=== PATIENT | female | born 1950 | race Caucasian/White ===

== ENCOUNTER 2017-06-24 16:41 | Emergency (ER) | payer MEDICARE ==
[~2017-06-24] VITALS: Ht 165.1 cm; Wt 87.1 kg
[~2017-06-24 16:41] MED LIST: ADVAIR 100-501 EACH; AMITRIPTYLINE H10 MG PO; AMOXICILLIN250 MG PO; DRAMAMINE50 MG PO; FOLIC ACID1 MG PO; GABAPENTIN300 MG PO; LORAZEPAM1 MG PO; SEROQUEL50 MG PO; ULTRAM 50MG50 MG PO; VITAMIN C1000 MG PO; ZYPREXA5 MG PO
--- OUTSIDE RECORDS SUMMARY | 2017-06-24 16:44 | XMS REPORT | Clinical Summary ---
Author Author [facility] Address Unknown Phone Unavailable Care Team Providers Care Business Records Manager Name Role Phone Patricio Coburn MD PCP Allergies Active Allergy Reactions Severity Noted Date Comments Codeine 10/04/2015 "if taken long period" Other 10/04/2015 Patient checked statement box listing: "allergy to medical tape, iodine, or latex" Current Medications Prescription Sig. Disp. Refills Start End Date Status Date LORAZepam (ATIVAN) 0.5 MG Take 0.5 mg by mouth Active tablet every 6 (six) hours as needed for anxiety. sertraline (ZOLOFT) 50 MG Take 50 mg by mouth Active tablet daily. lubiprostone (AMITIZA) 8 Take 8 mcg by mouth 2 Active MCG capsule (two) times a day with meals. traMADol (ULTRAM) 50 mg Take 50 mg by mouth every Active tablet 6 (six) hours as needed for moderate pain. QUEtiapine (SEROquel) 50 Take 50 mg by mouth Active MG tablet nightly. Active Problems Problem Noted Date Hx of diplopia 11/09/2015 Family History Medical History Relation Name Comments No Known Problems Brother No Known Problems Father No Known Problems Maternal Aunt No Known Problems Maternal Grandfather No Known Problems Maternal Grandmother No Known Problems Maternal Uncle No Known Problems Mother Cancer Other Unidentified family memb Heart attack Other Unidentified family memb Hypertension Other Unidentified family memb Strabismus Other Unidentified family memb Vision loss Other Unidentified family memb No Known Problems Paternal Aunt No Known Problems Paternal Grandfather No Known Problems Paternal Grandmother No Known Problems Paternal Uncle Relation Name Status Comments Brother Father Maternal Aunt Maternal Grandfather Maternal Grandmother Maternal Uncle Mother Other Unidentified family memb Paternal Aunt Paternal Grandfather Paternal Grandmother Paternal Uncle Social History Tobacco Use Types Packs/Day Years Used Date Former Smoker Cigarettes 0.5 50 Alcohol Use Drinks/Week oz/Week Comments Yes 2 unidentified drinks/year Sex Assigned at Date Recorded Not on file Last Filed Vital Signs Not on file Plan of Treatment Health Maintenance Due Date Last Done Comments COLONOSCOPY 12/28/1999 ZOSTER VACCINE 2009 PNEUMOCOCCAL 2014 POLYSACCHARIDE VACCINE AGE 65 AND OVER PNEUMOCOCCAL-13 2014 MAMMOGRAM 03/06/2015 03/06/2013, 03/06/2013, 02/11/2013 INFLUENZA VACCINE 11/14/2016 Results Not on fileafter 06/23/2016 Insurance Payer Benefit Subscriber ID Type Phone Address Plan / Group AETNA MEDICARE AETNA xxxxxxxx O MEDICARE HMO/PPO [facility] [place] [place] [address] [place] [address]
--- NOTE | 2017-06-24 17:54 | Diagnostic Imaging Report ---
SHOULDER LEFT COMPLETE, HUMERUS LEFT 2+VIEWS - 3 views HISTORY: Fall. COMPARISON: None available. FINDINGS: Bones: Severely comminuted displaced impaction fracture of the left humeral head and neck with superior displacement of the distal fracture fragment. Joints: The joint spaces are well-maintained. Soft tissues: The soft tissues appear unremarkable. IMPRESSION: Severely comminuted displaced impaction fracture of the left humeral head and neck. Signed by: Dr. Seven Velazquez M.D. on 06/24/2017 5:50 PM
[2017-06-24] MEDS ORDERED: HYDROCODONE/APAP 5MG-325MG TAB PO ONE (18:30)
== END 2017-06-24 18:49 | disposition home or self-care (01) ==
LOC: ER 16:41
DX: S42.295A Other nondisplaced fracture of upper end of left humerus, initial encounter for closed fracture (principal); W01.0XXA Fall on same level from slipping, tripping and stumbling without subsequent striking against object, initial encounter; Y93.01 Activity, walking, marching and hiking; Y92.008 Other place in unspecified non-institutional (private) residence as the place of occurrence of the external cause; I10 Essential (primary) hypertension; F31.9 Bipolar disorder, unspecified
CPT/HCPCS: 99283

== ENCOUNTER → 2018-05-10 | Day surgery (SDC) | payer MEDICARE ==
[2018-05-08 13:14] LABS: BASOPHILS % 0.1 % (0.0-1.0); HEMATOCRIT 49.1 % (34.2-44.1); HEMOGLOBIN 16.7 g/dL (12.0-16.0); LYMPHOCYTES # (AUTO) 2.1 (1.0-3.2); LYMPHOCYTES % 14.5 % (18.0-39.1); MEAN CORPUSCULAR HEMOGLOBIN 28.8 pg (28-32); MEAN CORPUSCULAR VOLUME 84.8 fL (81-99); MONOCYTES # (AUTO) 1.3 (0.2-0.8); MONOCYTES % 8.6 % (4.4-11.3); NEUTROPHILS # (AUTO) 11.1 (2.1-6.9); NEUTROPHILS % 76.3 % (38.7-80.0); PLATELET COUNT 346 x10e3/uL (140-360); RED BLOOD COUNT 5.79 x10e6/uL (3.6-5.1); RED CELL DISTRIBUTION WIDTH 13.3 % (11.7-14.4)
--- NOTE | 2018-05-08 13:18 | Diagnostic Imaging Report ---
EXAM: XR CHEST 2 VIEWS DATE: 05/08/2018 12:26 PM INDICATION: Preoperative, smoker, cough COMPARISON: 02/18/2018, no report available FINDINGS: Lines and Tubes: None Heart and Mediastinum: No acute cardiomediastinal findings. Mild aortic vascular calcifications. Lungs and Pleura: Granuloma right midlung and probable chronic interstitial changes in the lung bases, similar. Bones and Soft Tissues: Orthopedic hardware cervical spine and arthroplasty changes left shoulder. IMPRESSION: 1. Stable chronic changes. Signed by: Dr. Maurisio Wong MD on 05/08/2018 1:14 PM
[2018-05-08 13:29] LABS: ANION GAP 13.3 mmol/L (8-16); CALCIUM 10.7 mg/dL (8.4-10.2); CREATININE, SERUM 0.94 mg/dL (0.57-1.11); POTASSIUM 4.3 mmol/L (3.5-5.1)
[~2018-05-10] MED LIST changes: +AMITIZA24 MCG PO; +BUPIVACAINE 0.25%/EPI 30ML SDV INJ ONE; +CLONAZEPAM0.5 MG PO; +CYCLOBENZAPRINE5 MG PO; +DEXAMETHASONE SOD PHOS INJ 4 MG/ML VIAL ONE; +EPHEDRINE SULFATE INJ 50 MG/10 ML SYR ONE; +FENTANYL CITRATE/PF 100MCG/2 ML INJ ONE; +HYDROMORPHONE 2MG/ML 2 MG/ML ML ONE; +KLONOPIN1 MG PO; +LIDOCAINE HCL 2% LOCAL INJ 5 ML SDV VIAL INJ ONE; +MAGNESIUM PO; +METHOCARBAMOL500 MG PO; +METOCLOPRAMIDE HCL 10 MG/2ML VIAL ONE; +MIDAZOLAM HCL 2 MG/2 ML VIAL ONE; +ONDANSETRON HCL INJ 2MG/ML 2ML 2 MG/ML VIAL ONE; +PROPOFOL IV EMULSION 10 MG/ML 20 ML VIAL ONE; +SEVOFLURANE INHAL SOLN 250 ML PEN BTL ONE; +TRAMADOL HCL 50 MG TAB ONE; +VESICARE5 MG PO
--- OUTSIDE RECORDS SUMMARY | 2018-05-10 08:26 | XMS REPORT ---
Author Author [facility] Address Unknown Phone Unavailable Care Team Providers Care Government Operations Consultant Name Role Phone Sravanthi ZHENG Unavailable Unavailable MALU CARD Unavailable Unavailable Franchesca SKELTON Unavailable Unavailable Problems This patient has no known problems. Allergies, Adverse Reactions, Alerts This patient has no known allergies or adverse reactions. Medications This patient has no known medications. Results Test Description Test Time Test Comments Text Results Atomic Results Result Comments CHEST 2 VIEWS 2018-05-08 13:13:00 [place] [address] Patient Name: LITZY BARKERSIERRA Funez MR #: [id number] : 1950 Age/Sex: 67/F Req #: [id number] Adm Physician: Ordered by: GONZALO ZHENG MD Report #: [id number] Location: OR Room/Bed: Procedure: [id number] DX/CHEST 2 VIEWS Exam Date: Exam Time: REPORT STATUS: Signed EXAM: XR CHEST 2 VIEWS DATE: 05/08/2018 12:26 PM INDICATION: Pr eoperative, smoker, cough COMPARISON: 02/18/2018, no report available FINDINGS: Lines and Tubes: None Heart and Mediastinum: No acute cardiomediastinal findings. Mild aortic vascular calcifications. Lungs and Pleura: Granuloma right midlung and probable chronic interstitial changes in the lung bases, similar. Bones and Soft Tissues: Orthopedic hardware cervical spine and arthroplasty changes left shoulder. IMPRESSION: 1. Stable chronic changes. Signed by: Dr. Marce Wong MD on 05/08/2018 1:14 PM Dictated By: MARCE WONG MD 13 Transcribed By: JUD on 05/08/181313 COPY TO: GONZALO ZHENG MD CHEST 2 VIEWS 2018-02-18 15:06:00 [place] [address] Patient Name: OLGA LIDIA BARKER MR #: [id number] : 1950 Age/Sex: 67/F Req #: [id number] Adm Physician: Ordered by: GONZALO ZHENG MD Report #: [id number] Location: OR Room/Bed: Procedure: [id number] DX/CHEST 2 VIEWS Exam Date: Exam Time: REPORT STATUS: Signed EXAMINATION: PA and lateral views of the chest. COMPARISON: None CLINICAL HISTORY: Preoperative evaluation for breast surgery DISCUSSION: Lines/tubes: None. Lungs: The lungs are well inflated and clear. No pneumonia or pulmonary edema. Calcified granuloma right midlung. Pleura: There is no pleural effusion or pneumothorax. Heart and mediastinum: The cardiomediastinal silhouette is normal. Bones and soft tissues: No acute bony abnormalities. IMPRESSION: No acute cardiopulmonary abnormalities. Signed by: Dr. Jessi Magaña M.D. on 02/18/2018 3:06 PM Dictated By: JESSI MAGAÑA MD 1506 Transcribed By: JUD on 02/18/18 150 COPY TO: GONZALO ZHENG MD BASIC METABOLIC PANEL 2017-07-06 07:17:00 SODIUM (BEAKER) (test zxiz=336) 132 meq/L 136-145 POTASSIUM (BEAKER) (test kjvd=477) 4.3 meq/L 3.5-5.1 CHLORIDE (BEAKER) (test uvvc=120) 102 meq/L 98-107 CO2 (BEAKER) (test zxkw=678) 20 meq/L 22-29 BLOOD UREA NITROGEN (BEAKER) (test okyr=277) 11 mg/dL 7-21 CREATININE (BEAKER) (test zjlt=319) 0.75 mg/dL 0.57-1.25 GLUCOSE RANDOM (BEAKER) (test mgml=690) 110 mg/dL 70-105 CALCIUM (BEAKER) (test qiod=496) 8.7 mg/dL 8.4-10.2 EGFR (BEAKER) (test uwxb=0490) 77 mL/min/1.73 sq m ESTIMATED GFR IS NOT ACCURATE CREATININE CLEARANCE IN PREDICTING GLOMERULAR FILTRATION RATE. ESTIMATED GFR IS NOT APPLICABLE FOR DIALYSIS PATIENTS. HEMOGLOBIN AND [id number] 06:31:00* Test Item Value Reference Range Comments HEMOGLOBIN (BEAKER) (test ztmo=000) 11.6 GM/DL 11.2-15.7 HEMATOCRIT (BEAKER) (test nxam=945) 34.8 % 34.1-44.9 BASIC METABOLIC [id number] 17:02:00* Test Item Value Reference Range Comments SODIUM (BEAKER) (test dzuz=417) 131 meq/L 136-145 POTASSIUM (BEAKER) (test mcxy=838) 4.1 meq/L 3.5-5.1 CHLORIDE (BEAKER) (test jbav=807) 99 meq/L 98-107 CO2 (BEAKER) (test xzdc=892) 24 meq/L 22-29 BLOOD UREA NITROGEN (BEAKER) (test laft=430) 14 mg/dL 7-21 CREATININE (BEAKER) (test nitm=222) 0.74 mg/dL 0.57-1.25 GLUCOSE RANDOM (BEAKER) (test zzww=774) 131 mg/dL 70-105 CALCIUM (BEAKER) (test rtoq=735) 9.5 mg/dL 8.4-10.2 EGFR (BEAKER) (test muqw=0255) 78 mL/min/1.73 sq m ESTIMATED GFR IS NOT ACCURATE CREATININE CLEARANCE IN PREDICTING GLOMERULAR FILTRATION RATE. ESTIMATED GFR IS NOT APPLICABLE FOR DIALYSIS PATIENTS. HEMOGLOBIN AND [id number] 16:50:00* Test Item Value Reference Range Comments HEMOGLOBIN (BEAKER) (test tlet=828) 13.3 GM/DL 11.2-15.7 HEMATOCRIT (BEAKER) (test ltxo=779) 41.5 % 34.1-44.9 FL, INSURANCE SALES EXECUTIVE IN OR/30 MINUTE [id number] 15:40:00Reason for exam:->Open Reverse Shoulder ArthroplastyFINAL REPORT Fluoroscopy three views intraoperative 07/05/2017 3:40 PM CLINICAL HISTORY: Instrument localization COMPARISON: None available IMPRESSION: Please correlate imaging report findings with the procedure note prepared by Dr. Card, as an intra- procedure imaging consultation was not requested. Reported fluoroscopy time: 2.7 seconds. Signed: Taz Ibarra Verified Date/Time: 07/05/2017 15:40:55 Reading Location: [address] Consult Reading Room [id number] 14:58:00* Test Item Value Reference Range Comments SODIUM (BEAKER) (test fgal=602) 132 meq/L 136-145 POTASSIUM (BEAKER) (test tusy=962) 4.0 meq/L 3.5-5.1 CHLORIDE (BEAKER) (test ishv=795) 97 meq/L 98-107 CO2 (BEAKER) (test leos=991) 27 meq/L 22-29 BUN AND [id number] 14:58:00* Test Item Value Reference Range Comments BLOOD UREA NITROGEN (BEAKER) (test kkfg=072) 15 mg/dL 7-21 CREATININE (BEAKER) (test oojh=234) 0.78 mg/dL 0.57-1.25 EGFR (BEAKER) (test jugq=9647) 74 mL/min/1.73 sq m ESTIMATED GFR IS NOT ACCURATE CREATININE CLEARANCE IN PREDICTING GLOMERULAR FILTRATION RATE. ESTIMATED GFR IS NOT APPLICABLE FOR DIALYSIS PATIENTS. [id number] 14:55:00* Test Item Value Reference Range Comments HEMOGLOBIN (BEAKER) (test vzvg=031) 14.6 GM/DL 11.2-15.7 PLATELET [id number] 14:55:00* Test Item Value Reference Range Comments PLATELET COUNT (ZAIRA) (test shna=694) 284 K/CU MM 150-450 SHOULDER LEFT COMPLETE [place] [id number] [place] [address] Patient Name: OLGA LIDIA BARKER MR #: [id number] : 1950 Age/Sex: 66/F Req #: [id number] Adm Physician: Ordered by: POLO BUSTILLO NP Report #: [id number] Location: ER Room/Bed: Procedure: [id number] DX/SHOULDER LEFT COMPLETE Exam Date: 06/24/17 Exam Time: 1745 REPORT STATUS: Signed SHOULDER LEFT COMPLETE, HUMERUS LEFT 2+VIEWS - 3 views HISTORY: Fall. COMPARISON: None available. FINDINGS: Bones: Severely comm inuted displaced impaction fracture of the left humeral head and neck with sup erior displacement of the distal fracture fragment. Joints: The joint spa kellee are well-maintained. Soft tissues: The soft tissues appear unremarkab le. IMPRESSION: Severely comminuted displaced impaction fracture o f the left humeral head and neck. Signed by: Stanley Noguera on 06/24/2017 5:50 PM Dictated By: MARITA ROUSSEAU MD, MD 49 Transcribed By: JUD on 1749 COPY TO: POLO BUSTILLO NP HUMERUS LEFT 2+VIEWS [place] [address] Patient Name: OLGA LIDIA BARKER MR #: [id number] : [birth year] Age/Sex: 66/F Req #: [id number] [facility] Physician: Ordered by: POLO BUSTILLO NP Report #: [id number] Location: Room/Bed: Procedure: [id number] DX/HUMERUS LEFT 2+VIEWS Exam D ate: 06/24/17 Exam Time: 1745 REPORT STATUS: Si gned SHOULDER LEFT COMPLETE, HUMERUS LEFT 2+VIEWS - 3 views HISTORY: Fa ll. COMPARISON: None available. FINDINGS: Bones: Severely commin uted displaced impaction fracture of the left humeral head and neck with super ior displacement of the distal fracture fragment. Joints: The joint space s are well-maintained. Soft tissues: The soft tissues appear unremarkable . IMPRESSION: Severely comminuted displaced impaction fracture of the left humeral head and neck. Signed by: Dr. Seven Rousseau M.D. on 06/24/2017 5:50 PM Dictated By: MARITA ROUSSEAU MD, MD Electronically S igned By: MARITA ROUSSEAU MD, MD on 06/24/171749 Transcribed By: JUD on 06/14 COPY TO: POLO BUSTILLO NP
--- OUTSIDE RECORDS SUMMARY | 2018-05-10 08:26 | XMS REPORT | Clinical Summary ---
Author Author [facility] Address Unknown Phone Unavailable Care Team Providers Care Cable Swager Name Role Phone Almas Patricio PCP Allergies Comments Active Allergy Reactions Severity Noted Date Sometimes causes hyperactivity Tolerates Tylenol # 3 Codeine Other (See 04/05/2015 Comments) Triggers bipolar sx Hydrocodone-Acetaminophen 07/04/2017 Medications End Date Status Medication Sig Dispensed Refills Start Date Active dimenhyDRINATE Take by 0 (DRAMAMINE) 25 mg Chew mouth. Active LORazepam (ATIVAN) 0.5 MG Take 0.5 mg 0 tablet by mouth 3 (three) times daily . Active sertraline (ZOLOFT) 50 MG Take 75 mg by 0 tablet mouth daily . Active LUBIPROSTONE (AMITIZA Take by 0 ORAL) mouth. Active oxyCODONE-acetaminophen Take 1 tablet 0 (PERCOCET) 7.5-325 mg per by mouth tablet every 4 (four) hours as needed for Pain. Active QUEtiapine (SEROQUEL) 100 Take 100 mg 0 MG tablet by mouth nightly. Active cyclobenzaprine Take 10 mg by 0 (FLEXERIL) 10 MG tablet mouth 3 (three) times daily as needed for Muscle spasms. Active acetaminophen-codeine Take 1 tablet 0 (TYLENOL #3) 300-30 mg by mouth per tablet every 4 (four) hours as needed for Pain Pt states no reaction to this . 07/21/2017 acetaminophen-codeine Take 1 tablet 60 tablet 0 (TYLENOL #3) 300-30 mg by mouth 8 per tablet every 4 (four) hours as needed for Pain for up to 15 days. Max Daily Amount: 6 tablets 07/20/2017 aspirin (LOWELL ASPIRIN) Take 1 tablet 14 tablet 0 325 MG tablet (325 mg 8 total) by mouth daily for 14 days. 08/05/2017 lubiprostone (AMITIZA) 8 Take 1 60 capsule 0 MCG capsule capsule (8 8 mcg total) by mouth 2 (two) times daily with breakfast and dinner for 30 days. 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 Trigger thumb 04/21/2015 Carpal tunnel syndrome of left wrist 04/13/2015 Trigger thumb of left hand 04/13/2015 Retained orthopedic hardware 04/13/2015 Closed fracture of distal end of left radius with malunion 04/13/2015 Overview: UPDATED BY ICD10 SNOMED/IMO UPDATES Encounters Care Team Description Date Type Specialty Becca Das RN Follow-up 07/09/2017 Telephone Anesthesiology Natan Bauer MD 07/05/2017 Anesthesia Event Harrison Card MD ARTHROPLASTY,SHOULDER 07/05/2017 Surgery Harrison Card MD Other closed displaced fracture of proximal end of left humerus, initial encounter (Primary Dx) 07/05/2017 [facility] General Internal Medicine - Encounter 07/06/2017 Harrison Card MD Arthritis of wrist, left 07/04/2017 Hospital Pre-Admission Testing Encounter 07/04/2017 Orders Only General Internal Medicine after 05/09/2017 Social History Date Tobacco Use Types Packs/Day Years Used Current Every Day Smoker 1 50 Smokeless Tobacco: Never Used Tobacco Cessation: Ready to Quit: Yes; Counseling Given: Yes Comments: previously educated Alcohol Use Drinks/Week oz/Week Comments No rare Sex Assigned at Date Recorded Not on file Industry Job Start Date Occupation Not on file Not on file Not on file Travel End Travel History Travel Start No recent travel history available. Last Filed Vital Signs Time Taken Vital Sign Reading 07/06/2017 11:06 AM CDT Blood Pressure 120/59 07/06/2017 11:06 AM CDT Pulse 82 07/06/2017 11:06 AM CDT Temperature 36.2 C (97.1 F) 07/06/2017 11:06 AM CDT Respiratory Rate 18 07/06/2017 11:06 AM CDT Oxygen Saturation 97% - Inhaled Oxygen - Concentration 07/05/2017 8:58 AM CDT Weight 113.1 kg (249 lb 6.4 oz) 07/05/2017 8:58 AM CDT Height 162.6 cm (5' 4") 07/05/2017 8:58 AM CDT Body Mass Index 42.81 Plan of Treatment Not on file Implants Device Identifier Shelf Expiration Date Model / Serial / Lot Implanted Type Area Manufactur er 01/13/2021 [id number] / / [id number] Orthocord Sut Multipk #[id number] - [place]/Art Left: Shoulder J [id number] hroscopy &J:ETHICON Implanted: Qty: 1 on 07/05/2017 by :Harrison Macias MD PRDT 11/13/2021 AR-[id number] / / [id number] Sut Tape 1.3mm Ndl Tapr Wht Bl [place]/Art Left: Shoulder ARTHREX Ar-7500 - [id number] hroscopy Implanted: Qty: 2 on 07/05/2017 by Harrison Card MD 10/13/2021 AR-7200 / / [id number] Sut Fbrwire 2 38in 0[address]5 Cir Ar-7200 [place]/Art Left: Shoulder ARTHREX - [id number] hroscopy Implanted: Qty: 1 on 07/05/2017 by Harrison Card MD 205.226 / / Taylor More Full Thread 3.5x26mm - Fracture/F Left: Wrist SYNTHES [id number] ixation TRUMA Implanted: Qty: 1 on 04/21/2015 by Justin Alex III 205.224 / / Scr Taylor Ft 3.5x24 Ns 205.224 - IMPLANTS Left: Wrist SYNTHES [id number] TRUMA Implanted: Qty: 1 on 04/21/2015 by Justin Alex III Explanted: 12/11/2022 530-08-108 / / [id number] Stem Hum Rev 3q592st [id number] - Joints Left: Shoulder DJ [id number] SURG:ENCOR Implanted: Qty: 1 on 07/05/2017 by Harrison Cuadra MD MED:ENCORE ORTH 04/24/2022 [id number] / / [id number] Insrt Hum Socket 32mm 509-00-032 - Joints Left: Shoulder DJ [id number] SURG:ENCOR Implanted: Qty: 1 on 07/05/2017 by Harrison Cuadra MD MED:ENCORE ORTH 05/15/2023 [id number] / / [id number] Baseplt Glenoid Rsp 508-32-104 - Joints Left: Shoulder DJ [id number] SURG:ENCOR Implanted: Qty: 1 on 07/05/2017 by Harrison Cuadra MD MED:ENCORE ORTH 05/18/2023 [id number] / / [id number] Scr Bone 5.0x14mm 506-03-114 - Joints Left: Shoulder DJ [id number] SURG:ENCOR Implanted: Qty: 3 on 07/05/2017 by Harrison Cuadra MD MED:ENCORE ORTH 04/02/2023 [id number] / / [id number] Scr Bone 5.0x26mm 506-03-126 - Joints Left: Shoulder DJ [id number] SURG:ENCOR Implanted: Qty: 1 on 07/05/2017 by Harrison Cuadra MD MED:ENCORE ORTH 05/08/2023 [id number] / / [id number] Head Glenoid Sz 32 4 508-32-103 - Joints Left: Shoulder DJ [id number] SURG:ENCOR Implanted: Qty: 1 on 07/05/2017 by Harrison Cuadra MD MED:ENCORE ORTH 09/13/2018 415-00-080 / / [id number] [place] Cement Plug Left: Shoulder Implanted: Qty: 1 on 07/05/2017 by Harrison Card MD 10/13/2018 600-15-100 / / [id number] Means Hv With Gentamicin Left: Shoulder DJ ORTHO Implanted: Qty: 2 on 07/05/2017 by Harrison Card MD Procedures Comments Procedure Name Priority Date/Time Associated Diagnosis HEMOGLOBIN AND HEMATOCRIT Routine 07/06/2017 5:35 AM CDT BASIC METABOLIC PANEL (7) Routine 07/06/2017 5:35 AM CDT TRANSFUSION SERVICE 07/05/2017 REPORT - SCAN 5:44 PM CDT HEMOGLOBIN AND HEMATOCRIT STAT 07/05/2017 4:14 PM CDT BASIC METABOLIC PANEL (7) STAT 07/05/2017 4:14 PM CDT FL TALKBACK HOST IN OR 30 Routine 07/05/2017 MINUTE INCREMENTS 3:20 PM CDT ANESTHESIA PERIPHERAL Routine 07/05/2017 BLOCK 11:08 AM CDT PROCEDURE W/ C-ARM 07/05/2017 Closed 3-part fracture of 10:30 AM CDT proximal humerus with routine healing, left Special Needs (GENERAL WITH POST OP BLOCK CONTINUOUS , C-ARM/TECH , DONJOY, ARTHREX SUTURE TAPE, REGULAR OR TABLE WITH PADDED [place]) ARTHROPLASTY,SHOULDER 07/05/2017 Closed 3-part fracture of 10:30 AM CDT proximal humerus with routine healing, left Special Needs (GENERAL WITH POST OP BLOCK CONTINUOUS , C-ARM/TECH , DONJOY, ARTHREX SUTURE TAPE, REGULAR OR TABLE WITH PADDED [place]) PLATELET COUNT Routine 07/04/2017 2:25 PM CDT HEMOGLOBIN Routine 07/04/2017 2:25 PM CDT BUN AND CREATININE Routine 07/04/2017 2:25 PM CDT ELECTROLYTE PANEL Routine 07/04/2017 2:25 PM CDT TYPE AND SCREEN, Routine 07/04/2017 AUTOMATED 2:23 PM CDT ECG 12-LEAD Routine 07/04/2017 2:13 PM CDT Procedure Note - Interface, External Ris In - 07/04/2017 2:27 PM CDT Ventricula r Rate 85 BPM Atrial Rate 85 BPM P-R Interval 164 ms QRS Duration 106 ms Q-T Interval 368 ms QTC Calculatio n(Bazett) 437 ms P Shannock 54 degrees R Shannock -55 degrees T Shannock 32 degrees Normal sinus rhythm Low voltage QRS Incomplete right bundle branch block Left anterior fascicular block Abnormal ECG When compared with ECG of 5 13:50, Criteria for Inferior infarct are no longer Present ECG 12-LEAD Routine 07/04/2017 2:13 PM CDT after 05/09/2017 Results * Hemoglobin and hematocrit (07/06/2017 5:35 AM CDT) Only the most recent of 2 results within the time period is included. Hemoglobin 11.6 11.2 - 15.7 GM/DL [facility] Hematocrit 34.8 34.1 - 44.9 % [facility] Specimen Blood - Arm, Right Performing Organization Address [facility] Phone Number [facility] [address] [place] [address] [facility] * Basic metabolic panel (07/06/2017 5:35 AM CDT) Only the most recent of 2 results within the time period is included. Sodium 132 (L) 136 - 145 meq/L [facility] Potassium 4.3 3.5 - 5.1 meq/L [facility] Chloride 102 98 - 107 meq/L [facility] CO2 20 (L) 22 - 29 meq/L [facility] BUN 11 7 - 21 mg/dL [facility] Creatinine 0.75 0.57 - 1.25 mg/dL [facility] Glucose 110 (H) 70 - 105 mg/dL [facility] Calcium 8.7 8.4 - 10.2 mg/dL [facility] EGFR 77Comment: ESTIMATED GFR IS mL/min/1.[address] [facility] NOT ACCURATE CREATININE [facility] CLEARANCE IN PREDICTING GLOMERULAR FILTRATION RATE. ESTIMATED GFR IS NOT APPLICABLE FOR DIALYSIS PATIENTS. Specimen Blood - Arm, Right Performing Organization Address City/[facility] Phone Number [facility] [address] [place] [address] [facility] * TRANSFUSION SERVICE REPORT - SCAN (07/05/2017 5:44 PM CDT) Narrative Performed At * [place] graduate research assistant in or 30 minute increments (07/05/2017 3:20 PM CDT) Narrative Performed At FINAL REPORT GE RIS Fluoroscopy three views intraoperative 07/05/2017 3:40 PM CLINICAL HISTORY: Instrument localization COMPARISON: None available IMPRESSION: Please correlate imaging report findings with the procedure note prepared by Dr. Card, as an intra-procedure imaging consultation was not requested. Reported fluoroscopy time: 2.7 seconds. Signed: Taz Ibarra MD Report Verified Date/Time:07/05/2017 15:40:55 Reading Location: [address] Consult Reading Room Procedure Note Interface, External Ris In - 11/23/2017 11:14 AM CDT FINAL REPORT Fluoroscopy three views intraoperative 07/05/2017 3:40 PM CLINICAL HISTORY: Instrument localization COMPARISON: None available IMPRESSION: Please correlate imaging report findings with the procedure note prepared by Dr. Card, as an intra-procedure imaging consultation was not requested. Reported fluoroscopy time: 2.7 seconds. Signed: Taz Ibarra MD Report Verified Date/Time: 07/05/2017 15:40:55 Reading Location: [address] Consult Reading Room Performing Organization Address City/State/Zipcode Phone Number [facility] * ANESTHESIA PERIPHERAL BLOCK (07/05/2017 11:08 AM CDT) Narrative Performed At Jessi Qureshi MD 07/05/2017 11:08 AM Peripheral Block Patient location during procedure: pre-op Start time: 07/05/2017 10:11 AM End time: 07/05/2017 10:28 AM Reason for block: procedure for pain, at surgeon's request and post-op pain management Staffing Anesthesiologist: JESSI QURESHI Performed by: anesthesiologist Preanesthetic Checklist Completed: patient identified, site marked, surgical consent, pre-op evaluation, timeout performed, IV checked, risks and benefits discussed and monitors and equipment checked Peripheral Block Patient position: supine Prep: ChloraPrep Patient monitoring: heart rate, rn cardiac cath and continuous pulse ox Block type: Interscalene Laterality: left Injection technique: catheter Procedures: ultrasound guided and landmark technique Local infiltration: ropivicaine Infiltration strength: 0.35 % Dose: 20 mL Needle Needle type: short-bevel Needle gauge: 18 G Needle length: 75mm. Catheter type: open end Catheter size: 19 G Test dose: negative Assessment Injection assessment: negative aspiration for heme, no paresthesia on injection, incremental injection and local visualized surrounding nerve on ultrasound Paresthesia pain: none Heart rate change: no Slow fractionated injection: yes Additional Notes Patient tolerated well.No pain on injection or throughout procedure. Procedure Note Jessi Qureshi Jr., MD - 07/05/2017 11:01 AM CDT Peripheral Block Patient location during procedure: pre-op Start time: 07/05/2017 10:11 AM End time: 07/05/2017 10:28 AM Reason for block: procedure for pain, at surgeon's request and post-op pain management Staffing Anesthesiologist: JESSI QURESHI Performed by: anesthesiologist Preanesthetic Checklist Completed: patient identified, site marked, surgical consent, pre-op evaluation, timeout performed, IV checked, risks and benefits discussed and monitors and equipment checked Peripheral Block Patient position: supine Prep: ChloraPrep Patient monitoring: heart rate, rn cardiac cath and continuous pulse ox Block type: Interscalene Laterality: left Injection technique: catheter Procedures: ultrasound guided and landmark technique Local infiltration: ropivicaine Infiltration strength: 0.35 % Dose: 20 mL Needle Needle type: short-bevel Needle gauge: 18 G Needle length: 75mm. Catheter type: open end Catheter size: 19 G Test dose: negative Assessment Injection assessment: negative aspiration for heme, no paresthesia on injection, incremental injection and local visualized surrounding nerve on ultrasound Paresthesia pain: none Heart rate change: no Slow fractionated injection: yes Additional Notes Patient tolerated well. No pain on injection or throughout procedure. * BUN and Creatinine (07/04/2017 2:25 PM CDT) BUN 15 7 - 21 mg/dL [facility] Creatinine 0.78 0.57 - 1.25 mg/dL [facility] EGFR 74Comment: ESTIMATED GFR IS mL/min/1.[address] [facility] NOT ACCURATE CREATININE [facility] CLEARANCE IN PREDICTING GLOMERULAR FILTRATION RATE. ESTIMATED GFR IS NOT APPLICABLE FOR DIALYSIS PATIENTS. Specimen Blood Performing Organization Address City/[facility] Cent[facility]ode Phone Number [place] [phone] [place] [address] * Platelet count (07/04/2017 2:25 PM CDT) Platelets 284 150 - 450 K/CU MM [facility] Specimen Blood Performing Organization Address [facility] Phone Number [address] * Hemoglobin (07/04/2017 2:25 PM CDT) Hemoglobin 14.6 11.2 - 15.7 GM/DL [facility] Specimen Blood Performing Organization Address [facility] Phone Number [address] * Electrolytes (07/04/2017 2:25 PM CDT) Sodium 132 (L) 136 - 145 meq/L [facility] Potassium 4.0 3.5 - 5.1 meq/L [facility] Chloride 97 (L) 98 - 107 meq/L [facility] CO2 27 22 - 29 meq/L [facility] Specimen Blood Performing Organization Address [facility] Cent[facility] [address] [phone] [place] [address] * Type and screen, automated (07/04/2017 2:23 PM CDT) ABO/RH AUTOMATED (BEAKER) AB POSITIVE [facility] Ab Scrn NEGATIVE [facility] Specimen Blood Performing Organization Address City/[facility] Centercode Phone Number [address] [phone] [facility] * ECG 12 lead (07/04/2017 2:13 PM CDT) Narrative Performed At Ventricular Rate 85 BPM GE MUSE Atrial Rate 85 BPM P-R Interval 164 ms QRS Duration 106 ms Q-T Interval 368 ms QTC Calculation(Bazett) 437 ms P Shannock 54 degrees R Shannock -55 degrees T Shannock 32 degrees Normal sinus rhythm Low voltage QRS Incomplete right bundle branch block Left axis deviation Abnormal ECG When compared with ECG of 05-APR-2015 13:50, No significant changes Confirmed by Ulises NEVAREZ, JOSE C ([id number]) on 07/05/2017 8:13:14 AM Procedure Note Interface, External Ris In - 07/05/2017 8:13 AM CDT Ventricular Rate 85 BPM Atrial Rate 85 BPM P-R Interval 164 ms QRS Duration 106 ms Q-T Interval 368 ms QTC Calculation(Bazett) 437 ms P Shannock 54 degrees R Shannock -55 degrees T Shannock 32 degrees Normal sinus rhythm Low voltage QRS Incomplete right bundle branch block Left axis deviation Abnormal ECG When compared with ECG of 05-APR-2015 13:50, No significant changes Confirmed by Ulises NEVAREZ, JOSE C ([id number]) on 07/05/2017 8:13:14 AM Performing Organization Address City/State/Zipcode Phone Number MANJIT VASQUEZ after 05/09/2017 Insurance Payer Benefit Subscriber ID Type Phone Address Plan / Group AETNA - MEDICARE MGD CARE AETNA xxxxxxxx [phone] [address] [place] [address] HMO POS PPO Advance Directives For more information, please contact: [place] [phone] [place] [address] Date Inactivated Comments Code Status Date Activated 07/06/2017 6:25 PM Full Code 07/05/2017 8:32 AM This code status was determined by: Patient 04/21/2015 4:39 PM Full Code 04/21/2015 6:37 AM This code status was determined by: Patient 04/13/2015 7:16 PM Full Code 04/13/2015 11:00 AM This code status was determined by: Patient
--- OUTSIDE RECORDS SUMMARY | 2018-05-10 08:26 | XMS REPORT | Clinical Summary ---
Author Author [facility] Address Unknown Phone Unavailable Care Team Providers Care Marinator Name Role Phone Patricio Coburn MD PCP Allergies Comments Active Allergy Reactions Severity Noted Date "if taken long period" Codeine 10/04/2015 Patient checked statement box listing: "allergy to medical tape, iodine, or latex" Other 10/04/2015 Medications End Date Status Medication Sig Dispensed Refills Start Date Active LORAZepam (ATIVAN) 0.5 MG Take 0.5 mg 0 tablet by mouth every 6 (six) hours as needed for anxiety. Active sertraline (ZOLOFT) 50 MG Take 50 mg by 0 tablet mouth daily. Active lubiprostone (AMITIZA) 8 Take 8 mcg by 0 MCG capsule mouth 2 (two) times a day with meals. Active traMADol (ULTRAM) 50 mg Take 50 mg by 0 tablet mouth every 6 (six) hours as needed for moderate pain. Active QUEtiapine (SEROquel) 50 Take 50 mg by 0 MG tablet mouth nightly. Active Problems Problem Noted Date Hx of diplopia 11/09/2015 Encounters Care Team Description Date Type Specialty Jacob Soto MD 09/28/2017 Telephone Ophthalmology after 05/09/2017 Family History Medical History Relation Name Comments [...] Grandfather Paternal Grandmother Paternal Uncle Social History Date Tobacco Use Types Packs/Day Years Used Former Smoker Cigarettes 0.5 50 Alcohol Use Drinks/Week oz/Week Comments Yes 2 unidentified drinks/year Sex Assigned at Date Recorded Not on file Industry Job Start Date Occupation Not on file Not on file Not on file Travel End Travel History Travel Start No recent travel history available. Last Filed Vital Signs Not on file Plan of Treatment Health Maintenance Due Date Last Done Comments COLON CANCER SCREENING 12/28/1999 SHINGLES VACCINES (1 of 12/28/1999 2) PNEUMOCOCCAL 2014 POLYSACCHARIDE VACCINE AGE 65 AND OVER PNEUMOCOCCAL-13 2014 BREAST CANCER SCREENING 03/06/2015 03/06/2013, 03/06/2013, 02/11/2013 INFLUENZA VACCINE 11/14/2017 Results Not on fileafter 05/09/2017 Insurance Payer Benefit Subscriber ID Type Phone Address Plan / Group AETNA MEDICARE AETNA xxxxxxxx O MEDICARE HMO/PPO [facility]
[2018-05-10 13:15] VITALS: BP 114/48
--- NOTE | 2018-05-10 13:22 | Operative Report ---
DATE OF PROCEDURE: May 10, 2018 PREOPERATIVE DIAGNOSIS: Left breast mass, rule out malignancy. POSTOPERATIVE DIAGNOSIS: Left breast mass, rule out malignancy, pending permanent sections. OPERATION PERFORMED: Left partial mastectomy. ANESTHESIA: General. COMPLICATIONS: None. ESTIMATED BLOOD LOSS: Minimal. DESCRIPTION OF PROCEDURE: With the patient lying in bed in the supine position under good general anesthesia, the left breast were prepped with Betadine solution and draped in the usual manner. The area overlying the mass in the lower outer quadrant of the left breast was then infiltrated with 0.25% Marcaine. Incision was made. It was carried down through the subcutaneous tissue. The mass was then slowly and carefully encircled with normal tissue all the way around in toto and completely removed and sent for pathological examination. Hemostasis was then ascertained. The whole area was thoroughly irrigated. All the excess fluid was aspirated. The breast was then reapproximated with interrupted sutures of 2-0 chromic. The skin was closed with interrupted vertical mattress sutures of 3-0 nylon. A dressing was applied. The sponge, lap and needle count was correct. The patient tolerated the procedure well and returned to the recovery room in stable condition. Job#: [id number] [place]
== END | disposition home or self-care (01) ==
LOC: OR 08:21
PROVIDERS: ATTEND Surgery
DX: D24.2 Benign neoplasm of left breast (principal); E66.01 Morbid (severe) obesity due to excess calories; M54.2 Cervicalgia; R05 Cough; F31.9 Bipolar disorder, unspecified; F17.210 Nicotine dependence, cigarettes, uncomplicated; Z88.6 Allergy status to analgesic agent; Z91.040 Latex allergy status; Z01.810 Encounter for preprocedural cardiovascular examination; Z01.812 Encounter for preprocedural laboratory examination; Z01.818 Encounter for other preprocedural examination
CPT/HCPCS: 19301; 36415 ×2; 71046; 80048; 82948; 85025; 88305; 93005; J1100; J1170; J2001; J2250; J2405; J2704; J2765

== ENCOUNTER → 2019-02-24 | Outpatient (CLI) | payer MEDICARE ==
[~2019-02-24] MED LIST changes: -BUPIVACAINE 0.25%/EPI 30ML SDV INJ ONE; -DEXAMETHASONE SOD PHOS INJ 4 MG/ML VIAL ONE; -EPHEDRINE SULFATE INJ 50 MG/10 ML SYR ONE; -HYDROMORPHONE 2MG/ML 2 MG/ML ML ONE; +LACTATED RINGER'S 1,000 ML ONE; -LIDOCAINE HCL 2% LOCAL INJ 5 ML SDV VIAL INJ ONE; -METOCLOPRAMIDE HCL 10 MG/2ML VIAL ONE; -ONDANSETRON HCL INJ 2MG/ML 2ML 2 MG/ML VIAL ONE; -PROPOFOL IV EMULSION 10 MG/ML 20 ML VIAL ONE; -SEVOFLURANE INHAL SOLN 250 ML PEN BTL ONE; -TRAMADOL HCL 50 MG TAB ONE
--- NOTE | 2019-02-24 15:26 | Diagnostic Imaging Report ---
History: Dizziness, lightheaded, cervical radiculopathy Comparison studies: None Technique: Sagittal T1, T2 and IR, axial T2 and axial gradient echo Intravenous contrast: None Findings: Alignment: Normal lordosis. No scoliosis. Cervicomedullary junction: No abnormalities. Patent foramen magnum. Soft tissues: No T2 hyperintense inflammatory changes. 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 Spinal cord: Normal in size and signal from the foramen magnum through T4. Surgical changes, anterior cervical fusion with plate and screws from C3 through C7. Bilateral laminectomies from C3 through C6. Vertebrae: Normal in height and signal intensity. No fractures, infection or neoplasm. Degenerative changes: C2-C3: Disc degeneration with loss of T2 signal. Right uncinate process hypertrophy without canal stenosis and moderate right foraminal narrowing C3-C4: Obliterated intervertebral disc. Patent canal and foramina. C4-C5: Obliterated intervertebral disc. Posterior decompression with patent canal. Mild uncinate process hypertrophy with patent foramina C5-C6: Obliterated intervertebral disc. Posterior the decompression with patent canal and foramina C6-C7: Obliterated intervertebral disc. Patent canal and foramina. C7-T1: Obliterated intervertebral disc. Uncinate process hypertrophy results in mild right foraminal narrowing without canal stenosis IMPRESSION: 1. Anterior cervical fusion without evidence of complication. 2. Mild right degenerative foraminal narrowing at C7-T1. Moderate right degenerative foraminal narrowing at C2-3. 3. Posterior the decompression at the cervical spine without significant canal stenosis Signed by: DR Duane Mackay M.D. on 02/24/2019 3:22 PM
== END ==
LOC: MRI 08:37
PROVIDERS: ATTEND Family Medicine
DX: M54.12 Radiculopathy, cervical region (principal)
CPT/HCPCS: 72141; J2250; J3010; J7121

== ENCOUNTER → 2020-08-25 | Day surgery (SDC) | payer MEDICARE ==
[2020-08-20 15:00] LABS: BASOPHILS % 0.4 % (0.0-1.0); HEMATOCRIT 47.1 % (34.2-44.1); HEMOGLOBIN 16.2 g/dL (12.0-16.0); LYMPHOCYTES # (AUTO) 1.7 (1.0-3.2); LYMPHOCYTES % 15.5 % (18.0-39.1); MEAN CORPUSCULAR HGB CONC 34.4 g/dL (31-35); MEAN CORPUSCULAR VOLUME 84.3 fL (81-99); MONOCYTES % 8.9 % (4.4-11.3); NEUTROPHILS # (AUTO) 8.4 (2.1-6.9); NEUTROPHILS % 74.8 % (38.7-80.0); PLATELET COUNT 311 x10e3/uL (140-360); RED BLOOD COUNT 5.59 x10e6/uL (3.6-5.1); RED CELL DISTRIBUTION WIDTH 14.3 % (11.7-14.4)
[2020-08-20 15:18] LABS: ANION GAP 14.9 mmol/L (8-16); CALCIUM 9.9 mg/dL (8.4-10.2); POTASSIUM 3.9 mmol/L (3.5-5.1)
[~2020-08-25] MED LIST changes: +ASPIRIN81 MG PO; +BUPIVACAINE 0.5%/EPI 30 ML SDV INJ ONE; +CEFAZOLIN SOD 1 GM/NS 50ML 100 ML IV ONE; +DEXAMETHASONE SOD PHOS INJ 4 MG/ML VIAL ONE; -LACTATED RINGER'S 1,000 ML ONE; +LASIX20 MG PO; +LIDOCAINE HCL 2% LOCAL INJ 5 ML SDV VIAL INJ ONE; +LIPITOR10 MG PO; +ONDANSETRON HCL INJ 2MG/ML 2ML 2 MG/ML VIAL ONE; +POTASSIUM CHLO20 ME1 PO; +POVIDONE IODINE 0.05% 0.05 % ML PO ONE; +PROPOFOL IV EMULSION 10 MG/ML 20 ML VIAL ONE; +SEVOFLURANE INHAL SOLN 250 ML PEN BTL ONE; +ZOLOFT50 MG PO; +ZYPREXA10 MG PO
[2020-08-25 11:05] VITALS: BP 138/88
== END | disposition home or self-care (01) ==
LOC: OR 07:07
PROVIDERS: ATTEND Specialist
DX: S83.221A Peripheral tear of medial meniscus, current injury, right knee, initial encounter (principal); M17.11 Unilateral primary osteoarthritis, right knee; M22.41 Chondromalacia patellae, right knee; M67.51 Plica syndrome, right knee; M50.20 Other cervical disc displacement, unspecified cervical region; R05 Cough; F31.9 Bipolar disorder, unspecified; F41.9 Anxiety disorder, unspecified; F17.200 Nicotine dependence, unspecified, uncomplicated; X58.XXXA Exposure to other specified factors, initial encounter; Z88.6 Allergy status to analgesic agent; Z01.810 Encounter for preprocedural cardiovascular examination; Z01.812 Encounter for preprocedural laboratory examination; Z01.818 Encounter for other preprocedural examination; Z20.822 Contact with and (suspected) exposure to COVID-19; Z87.820 Personal history of traumatic brain injury
CPT/HCPCS: 29881; 36415; 71046; 80048; 85025; 93005; J0690; J1100; J2001; J2250; J2405; J2704; J3010; U0002